=== PATIENT | female | born 1960 | race American Indian/Alaskan Native ===

== ENCOUNTER 2017-01-16 19:31 | Emergency (ER) | payer MEDICAID ==
[2017-01-16 19:49] VITALS: BP 138/81
[2017-01-16] MEDS ORDERED: PROVENTIL IH ONE (19:51)
== END 2017-01-16 22:50 | disposition left against medical advice (07) ==
LOC: ED 19:31
DX: J45.909 Unspecified asthma, uncomplicated (principal); Z53.21 Procedure and treatment not carried out due to patient leaving prior to being seen by health care provider
CPT/HCPCS: 94640